=== PATIENT | female | born 1985 | race Caucasian/White ===

== ENCOUNTER → 2019-07-20 | Outpatient (CLI) | payer OTHER ==
--- NOTE | 2019-07-20 10:55 | US ---
EXAMINATION TYPE: US venous doppler duplex LE LT DATE OF EXAM: 07/20/2019 10:35 AM COMPARISON: NONE CLINICAL HISTORY: M79.605,Z86.718 HX DVT, LT LEG PAIN. No h/o DVT, patient had hematoma in her left c golden at 18 that they tried to drain, never on thinners, now left foot is swelling SIDE PERFORMED: Left TECHNIQUE: The lower extremity deep venous system is examined utilizing real time linear array sonog lilliana with graded compression, doppler sonography and color-flow sonography. VESSELS IMAGED: External Iliac Vein (EIV) Common Femoral Vein Deep Femoral Vein Greater Saphenous Vein * Femoral Vein Popliteal Vein Small Saphenous Vein * Proximal Calf Veins (* superficial vessels) Left Leg: Limited exam appears negative for DVT Patient can not tolerate any touching in her thigh due to extremely ticklish and cannot relax leg Unable to do compression on her left EIV or CFV and vein could not fully compress due to her tensing during exam. Good blood flow and doppler seen throughout leg. IMPRESSION: 1. No left lower extremity deep venous thrombosis could be diagnosed based on this examination. There is limitation in the external iliac and common femoral vein due to sensitivity
== END | disposition home or self-care (01) ==
LOC: RADUSWWP 10:11
PROVIDERS: ATTEND Family Medicine
DX: M79.605 Pain in left leg (principal); Z86.718 Personal history of other venous thrombosis and embolism

== ENCOUNTER → 2021-04-08 | Outpatient (CLI) | payer OTHER ==
[2021-04-08 17:24] VITALS: BP 122/87; PULSE 75; RESP 16; TEMP 98.2; BMI 50.3
--- NOTE | 2021-04-08 17:31 | P.HPBAR ---
Bariatric H&P - History & Physicial H&P Date: 04/08/21 History & Physicial: Visit/CC: initial Patient initial contact: Initial weight: 135.171 kg Initial weight in pounds: 298.00 Height: 5 ft 4.5 in Initial BMI: 50.3 Last weight: Current weight: 135.171 kg Current weight in pounds: 298.00 Current BMI: 50.3 [place] body weight (based on NIH guidelines): 55.565 kg Excess body weight loss: 0.0% The patient is a 36 year-old F who presents for Bariatric Assessment. She is looking into weight loss. Highest of 308 pounds. She has tried Weight watchers, keto diet, atkins diet, intermittent fasting, and more. She lost 27 pounds with previous attempts with weight regain. All family immediate has troubles with their weight. Her mother has the lap band and is looking to have it removal. No gallbladder. She reports GERD. She does not take medications for her GERD but has occasional homeopathic remedies. She has lower back pain, hip, knee, ankle and feet pain. She has easy bruising. No prior DVTs. Grandmother had blood clots. No stomach or esophageal cancer. No IBD. She has thyroid and PCOS. No hypertension. No sleep apnea. No hiatal hernia to her knowledge. Only gallbladder surgery via laparoscopic approach. No blood in stool. Past Medical History Past Medical History: No Reported History History of Any Multi-Drug Resistant Organisms: None Reported Past Surgical History: Cholecystectomy Additional Past Surgical History / Comment(s): LEEP-2005 Past Anesthesia/Blood Transfusion Reactions: No Reported Reaction Past Psychological History: No Psychological Hx Reported Smoking Status: Unknown if ever smoked Past Alcohol Use History: None Reported Past Drug Use History: None Reported - Past Family History Mother Family Medical History: Hypertension Father Family Medical History: Hypertension Additional Family Medical History / Comment(s): father born completely missing aortic valve Surgical - Exam Vital Signs Temp Pulse Resp BP 98.2 F 75 16 122/87 04/08/21 17:18 04/08/21 17:18 04/08/21 17:18 04/08/21 17:18 Bariatric Checklist Checklist: Plan: Checklist: EGD: 1. Hiatal hernia: 2. H. Pylori: HgbA1c: Vitamin D: Smoking: Never smoker Primary care physician referral: laming Psychiatry clearance: Cardiology clearance: Sleep study: Diet journal: VTE risk score: VTE risk level: Rehab needs at discharge:
== END | disposition home or self-care (01) ==
LOC: BARWHC3 15:53
PROVIDERS: ATTEND Surgery Plastic and Reconstructive Surgery
DX: E66.01 Morbid (severe) obesity due to excess calories (principal); Z68.43 Body mass index [BMI] 50.0-59.9, adult
CPT/HCPCS: 99203

== ENCOUNTER → 2021-04-10 | Outpatient (CLI) | payer OTHER ==
[2021-04-10 10:35] LABS: INR 0.9 (<1.2); Prothrombin Time 10.1 sec (9.0-12.0)
[2021-04-10 10:54] LABS: Partial Thromboplastin Time 21.1 sec (22.0-30.0)
[2021-04-10 16:25] LABS: % Iron Saturation 12.98 (12.00-45.00); African American GFR (CKD) 111.5 (60.0-200.0); Albumin 4.4 g/dL (3.80-4.90); Albumin/Globulin Ratio 1.76 (1.60-3.17); Anion Gap 7.2 mmol/L (4.00-12.00); BUN/Creat Ratio 12.5 Ratio (12.00-20.00); Calcium 8.9 mg/dL (8.7-10.3); Carbon Dioxide 26.8 mmol/L (21.6-31.8); Chol/HDL Ratio 4.45; Globulin 2.5 g/dL (1.6-3.3); LDL Cholesterol,Calculated 112.4 mg/dL (0.0-131.0); Magnesium 1.9 mg/dL (1.5-2.4); Non-African American GFR(CKD) 96.2 (60.0-200.0); Phosphorus 3.5 mg/dL (2.4-5.1); Potassium 4.1 mmol/L (3.5-5.5); Total Bilirubin 0.6 mg/dL (0.3-1.2); Total Protein 6.9 g/dL (6.2-8.2); VLDL Calculation 25.6 mg/dL (5.00-40.00)
[2021-04-10 16:29] LABS: HCT 43.2 % (37.2-46.3); HGB 13.3 g/dL (12.0-15.0); MCH 25.9 pg (27.0-32.0); MCHC 30.8 g/dL (32.0-37.0); Mean Platelet Volume 11.5 fL (9.5-12.2); Platelet Count 284 X 10*3/uL (140-440); RBC 5.14 X 10*6/uL (4.10-5.20); RDW 13.6 % (11.5-14.5); WBC 7.73 X 10*3/uL (4.50-10.00)
[2021-04-10 16:33] LABS: Ferritin 26.9 ng/mL (10.0-291.0)
[2021-04-10 16:39] LABS: Folate, Serum 10.5 ng/mL
[2021-04-11 04:21] LABS: Hemoglobin A1C 4.9 % (4.0-6.0)
[2021-04-13 19:32] LABS: Selenium 133 mcg/L (63-160)
[2021-04-14 06:30] LABS: Vitamin A 41 ug/dL (38-106)
[2021-04-14 06:46] LABS: Vit B1(Thiamine) 75 ug/L (38-122)
[2021-04-14 06:57] LABS: Zinc, Serum 88 ug/dL (60-130)
[2021-04-14 09:46] LABS: Anabasine Urine <2.0 ng/mL (<2.0)
== END | disposition home or self-care (01) ==
LOC: LABWHC1 08:57
PROVIDERS: ATTEND Surgery Plastic and Reconstructive Surgery
DX: E66.01 Morbid (severe) obesity due to excess calories (principal); E89.1 Postprocedural hypoinsulinemia; D50.8 Other iron deficiency anemias; K90.89 Other intestinal malabsorption; E55.9 Vitamin D deficiency, unspecified; K74.1 Hepatic sclerosis; N19 Unspecified kidney failure; K50.90 Crohn's disease, unspecified, without complications; Z71.51 Drug abuse counseling and surveillance of drug abuser; Z98.84 Bariatric surgery status
CPT/HCPCS: 36415; 80053; 80061; 80323; 82306; 82525; 82607; 82728; 82746; 83036; 83540; 83550; 83735; 83970; 84100; 84134; 84255; 84425; 84443; 84590; 84630; 85027; 85610; 85730; 93005

== ENCOUNTER 2021-05-11 07:29 | Day surgery (SDC) | payer OTHER ==
[2021-05-08 09:33] VITALS: BMI 51.5
[~2021-05-11 07:29] MED LIST: LACTATED RINGERS 1,000 ML IV SCH; LIDOCAINE 1% (10MG/ML) FOR IV START INTRADERMA PRN
--- NOTE | 2021-05-11 08:01 | P.GSHP ---
History of Present Illness H&P Date: 05/11/21 CHIEF COMPLAINT: GERD HISTORY OF PRESENT ILLNESS: The patient is a 36-year-old female who presents reports gastroesophageal reflux disease. Upper endoscopy was offered for further evaluation and management. PAST MEDICAL HISTORY: Please see list. PAST SURGICAL HISTORY: Please see list. MEDICATIONS: Please see list. ALLERGIES: Please see list. SOCIAL HISTORY: No illicit drug use FAMILY HISTORY: No reports of Crohn disease or ulcerative colitis. REVIEW OF ORGAN SYSTEMS: CONSTITUTIONAL: No reports of fevers or chills. GI: Denies any blood in stools or constipation. PHYSICAL EXAM: VITAL SIGNS: Stable GENERAL: Well-developed and pleasant in no acute distress. HEENT: No scleral icterus. Extraocular movements grossly intact. Moist buccal mucosa. NECK: Supple without lymphadenopathy. CHEST: Unlabored respirations. Equal bilateral excursions. CARDIOVASCULAR: Regular rate and rhythm. Distal 2+ pulses. ABDOMEN: Soft, nondistended. MUSCULOSKELETAL: No clubbing, cyanosis, or edema. ASSESSMENT: 1. Gastroesophageal reflux disease PLAN: 1. Recommend proceeding with an upper endoscopy Past Medical History Past Medical History: No Reported History History of Any Multi-Drug Resistant Organisms: None Reported Past Surgical History: Cholecystectomy Additional Past Surgical History / Comment(s): LEEP-2005 Past Anesthesia/Blood Transfusion Reactions: No Reported Reaction Smoking Status: Former smoker - Past Family History Mother Family Medical History: Hypertension Father Family Medical History: Hypertension Additional Family Medical History / Comment(s): father born completely missing aortic valve Medications and Allergies Home Medications Medication Instructions Recorded Confirmed Type No Known Home Medications 05/08/21 05/08/21 History Allergies Allergy/AdvReac Type Severity Reaction Status Date / Time No Known Allergies Allergy Verified 05/08/21 09:25
[2021-05-11 08:09] VITALS: TEMP 97.7
[2021-05-11] MEDS ORDERED: LACTATED RINGERS 1,000 ML IV ONE (08:09)
[2021-05-11] MEDS ORDERED: PROPOFOL 10 MG/ML 20 ML VIAL IV ONE (08:48)
[2021-05-11] MEDS ORDERED: LIDOCAINE 1% INJ 10MG/ML (20 ML MDV) ONE (08:48)
[2021-05-11 09:17] VITALS: BP 146/82; PULSE 75; RESP 16
--- NOTE | 2021-05-11 09:25 | P.PCN ---
Date of Procedure: 05/11/21 Description of Procedure: PREOPERATIVE DIAGNOSIS: Gastroesophageal reflux disease. Morbid obesity. POSTOPERATIVE DIAGNOSIS: Morbid obesity. Gastritis. Gastroesophageal reflux disease. OPERATION: Esophagogastroduodenoscopy with biopsies along antrum. SURGEON: Breanne Hooper MD ANESTHESIA: MAC. INDICATIONS: The patient is a 36-year-old female who presents with a history of reflux disease. Benefits and risks of the procedure were described. Informed consent was obtained. DESCRIPTION: The patient was brought into the endoscopy suite and laid in the left lateral decubitus position. An Olympus gastroscope was passed along the posterior oropharynx down to the distal esophagus where the squamocolumnar junction was encountered at 40 cm from the incisors. The stomach was entered and no bile reflux was found. Additional findings are listed below. Biopsies with cold forceps were obtained of the antrum. The first through third portion of the duodenum was examined and unremarkable. Retroflexion of the scope confirmed Hill grade 2 lower esophageal valve. The squamocolumnar junction demonstrated LA grade A erosive esophagitis. The stomach was desufflated. The patient tolerated the procedure well. FINDINGS: Squamocolumnar junction 37 cm from the incisors. Diaphragmatic hiatus at 37 cm. Hill grade 2 lower esophageal valve. LA grade A erosive esophagitis. No active duodenitis. Chronic gastritis RECOMMENDATIONS: Upper endoscopy as needed. Plan - Discharge Summary Discharge Rx Participant: No New Discharge Prescriptions: Continue No Known Home Medications Discharge Medication List No Known Home Medications 05/08/21 [History] Follow up Appointment(s)/Referral(s): [place], [place] [NON-STAFF] - 05/20/21 Patient Instructions/Handouts: *Surgery [facility] - (Anesthesia) Endoscopy Discharge Instructions, Gastritis (DC) Discharge Disposition: HOME SELF-CARE
== END 2021-05-11 09:47 | disposition home or self-care (01) ==
LOC: ORWHC2ENDO 07:29
PROVIDERS: ATTEND Surgery Plastic and Reconstructive Surgery
DX: K29.50 Unspecified chronic gastritis without bleeding (principal); K22.10 Ulcer of esophagus without bleeding; K21.9 Gastro-esophageal reflux disease without esophagitis; Z90.49 Acquired absence of other specified parts of digestive tract; Z87.891 Personal history of nicotine dependence; Z82.49 Family history of ischemic heart disease and other diseases of the circulatory system; Z84.89 Family history of other specified conditions; E66.01 Morbid (severe) obesity due to excess calories; Z68.43 Body mass index [BMI] 50.0-59.9, adult; Z98.890 Other specified postprocedural states
CPT/HCPCS: 81025; 88305; 43239; J2001; J2704

== ENCOUNTER → 2021-05-25 | Outpatient (CLI) | payer OTHER ==
[2021-05-25 13:33] VITALS: BMI 50.8
== END | disposition home or self-care (01) ==
LOC: BARWHC3 08:42
PROVIDERS: ATTEND Surgery Plastic and Reconstructive Surgery
DX: E66.01 Morbid (severe) obesity due to excess calories (principal); Z71.3 Dietary counseling and surveillance
CPT/HCPCS: 97804

== ENCOUNTER → 2021-05-27 | Outpatient (CLI) | payer OTHER ==
[2021-05-27 17:37] VITALS: BP 152/95; PULSE 80; RESP 18; TEMP 98.4; BMI 50.5
--- NOTE | 2021-05-27 17:41 | P.PN ---
Subjective Progress Note Date: 05/27/21 She comes in consent for sleeve. BMI 50. Keep current weight. Consent reviewed. Objective - Vital Signs Vital signs: Vital Signs Temp 98.4 F 05/27/21 17:32 Pulse 80 05/27/21 17:32 Resp 18 05/27/21 17:32 BP 152/95 05/27/21 17:32 Pulse Ox Intake & Output 05/26/21 05/27/21 05/27/21 18:59 06:59 18:59 Weight 135.624 kg
== END | disposition home or self-care (01) ==
LOC: BARWHC3 15:56
PROVIDERS: ATTEND Surgery Plastic and Reconstructive Surgery
DX: E66.01 Morbid (severe) obesity due to excess calories (principal); Z68.43 Body mass index [BMI] 50.0-59.9, adult
CPT/HCPCS: 99211

== ENCOUNTER → 2021-08-24 | Outpatient (CLI) | payer OTHER ==
[2021-08-24 10:36] LABS: Basophils # (A) 0.1 k/uL (0-0.2); Basophils % (A) 1 %; Eosinophils # (A) 0.1 k/uL (0-0.7); Eosinophils % (A) 1 %; HCT 40.3 % (34.0-46.0); HGB 13.2 gm/dL (11.4-16.0); Lymphocytes # (A) 2.2 k/uL (1.0-4.8); Lymphocytes % (A) 27 %; MCH 26.7 pg (25.0-35.0); MCHC 32.7 g/dL (31.0-37.0); MCV 81.7 fL (80.0-100.0); Monocytes # (A) 0.4 k/uL (0-1.0); Monocytes % (A) 5 %; Neutrophils # (A) 5.5 k/uL (1.3-7.7); Neutrophils % (A) 65 %; Platelet Count 310 k/uL (150-450); RBC 4.93 m/uL (3.80-5.40); WBC 8.4 k/uL (3.8-10.6)
[2021-08-24 10:45] LABS: ALT 22 U/L (4-34); AST 22 U/L (14-36); African American GFR (CKD) >90 (>60 ml/min/1.73 sqM); Albumin 3.9 g/dL (3.5-5.0); Alkaline Phosphatase 60 U/L (38-126); Anion Gap 9 mmol/L; Blood Urea Nitrogen 15 mg/dL (7-17); Calcium 9.5 mg/dL (8.4-10.2); Carbon Dioxide 26 mmol/L (22-30); Chloride 104 mmol/L (98-107); Glucose 94 mg/dL (74-99); Non-African American GFR(CKD) >90 (>60 ml/min/1.73 sqM); Potassium 4.4 mmol/L (3.5-5.1); Sodium 139 mmol/L (137-145); Total Bilirubin 0.7 mg/dL (0.2-1.3); Total Protein 7.1 g/dL (6.3-8.2)
== END | disposition home or self-care (01) ==
LOC: LABPAT 09:12
PROVIDERS: ATTEND Surgery Plastic and Reconstructive Surgery
DX: Z01.812 Encounter for preprocedural laboratory examination (principal)
CPT/HCPCS: 80053; 85025; 86850; 86900; 86901

== ENCOUNTER 2021-08-31 07:53 | Inpatient (IN) | payer OTHER ==
--- NOTE | 2021-08-31 05:24 | P.GSHP ---
History of Present Illness H&P Date: 08/31/21 CHIEF COMPLAINT: Morbid obesity HISTORY OF PRESENT ILLNESS: Feli Bryant is a 36-year-old female who presents with morbid obesity. Her highest is 308 pounds. She has tried Weight watchers, keto diet, atkins diet, intermittent fasting, and more. She lost 27 pounds with her previous attempts and now with weight regain. She has osteoarthritis with lower back pain, hip, knee, ankle and feet pain. She has easy bruising. She is looking into the sleeve gastrectomy. At height of 5 feet 4.5 inches, her ideal body weight is 144 pounds. Her highest is 308 pounds, body mass index 52.1. She comes in 298 pounds. Her body mass index is 50.5. She is 154 pounds overweight. PAST MEDICAL HISTORY: 1. Morbid obesity due to excess calories 2. Body mass index of 52.1 3. Osteoarthritis of the knees. 4. Osteoarthritis of the lower back. 5. Osteoarthritis of the hips 6. Osteoarthritis of the ankle 7. Osteoarthritis of the feet 8. Gastroesophageal reflux disease. 9. Hypertension. PAST SURGICAL HISTORY: 1. Cholecystectomy 2. LEEP procedure HOME MEDICATIONS: Home Medications Medication Instructions Recorded Confirmed Ibuprofen [Motrin] 200 mg PO Q6H 05/27/21 05/27/21 ALLERGIES: Allergies Allergy/AdvReac Type Severity Reaction Status Date / Time No Known Allergies Allergy Verified 05/27/21 17:33 SOCIAL HISTORY: Denies past tobacco use. FAMILY HISTORY: No family history of ulcerative colitis disease or Crohn's disease. Family history of morbid obesity. No lupus in the family. No reports of stomach or esophageal cancer. REVIEW OF ORGAN SYSTEMS: CONSTITUTIONAL: At height of 5 feet 4.5 inches, her ideal body weight is 144 pounds. Her highest is 308 pounds, body mass index 52.1. She comes in 298 pounds. Her body mass index is 50.5. She is 154 pounds overweight. HEENT: Denies any active troubles with vision or hearing. ENDOCRINE: Denies diabetes. Denies hypothyroidism. CARDIOVASCULAR: Denies past reports of palpitations or heart attacks or chest pain. RESPIRATORY: Has daytime somnolence. GASTROINTESTINAL: Denies any bright red blood per rectum. Has gastroesophageal reflux disease. MUSCULOSKELETAL: Has lower back pain and joint pain. Has osteoarthritis of the knees. NEURO: No headaches. No seizure disorders. PSYCH: Denies depression. No suicidal ideation. RHEUMATOLOGIC: No lupus. No rheumatoid arthritis. HEMATOLOGIC: Denies any abnormal bleeding or bruising. No personal history of DVTs. SKIN: Denies rash. No skin cancer. PHYSICAL EXAM: VITAL SIGNS: Height 5 foot 4.5 inches, weight 298 pounds. BMI 50.5 GENERAL: Well-developed in no acute distress. HEENT: No scleral icterus. Extraocular movements grossly intact. Hears conversational speech. No nasal drainage. NECK: Supple without lymphadenopathy. CHEST: Nonlabored respirations with equal bilateral excursions. CARDIOVASCULAR: Regular rate and regular rhythm. Distal 2+ pulses. ABDOMEN: Obese, soft, nontender, nondistended. MUSCULOSKELETAL: No clubbing, cyanosis. NEURO: No focal or lateralizing signs. Cranial nerves 2 through 12 grossly within normal limits. PSYCH: Appropriate affect. Alert and oriented to person, place and time. SKIN: Good skin turgor. Well perfused. ASSESSMENT: 1. Morbid obesity due to excess calories 2. Body mass index of 52.1 3. Osteoarthritis of the knees. 4. Osteoarthritis of the lower back. 5. Osteoarthritis of the hips 6. Osteoarthritis of the ankle 7. Osteoarthritis of the feet 8. Gastroesophageal reflux disease. 9. Hypertension. 10. Iron deficiency anemia 11. Chronic gastritis PLAN: 1. Bariatric options between a sleeve, band and a Nikki-en-Y gastric bypass were reviewed in detail. The patient elected for a sleeve gastrectomy. Robotic assisted approach described. 2. The [place] [facility]ariat[facility] Collaborative Data was also reviewed with benefits and risks as described. 3. An 8 page second-generation bariatric consent form was reviewed in detail including potential of bleeding, infection, leaks, adequate weight loss, nutritional deficiencies which the patient demonstrated understanding of the risks. 4. Antibiotic prophylaxis. 5. Inpatient hospitalization anticipated for more than 2 nights. 6. She is at elevated risk for perioperative complications with body mass index over 50.0 7. Overall, patient has expressed understanding of bariatric care including postoperative diet and commitment of lifestyle. Patient should benefit from surgical intervention for correction of her morbid obesity. Past Medical History Past Medical History: No Reported History History of Any Multi-Drug Resistant Organisms: None Reported Past Surgical History: Cholecystectomy Additional Past Surgical History / Comment(s): LEEP-2006. egd Past Anesthesia/Blood Transfusion Reactions: No Reported Reaction Smoking Status: Former smoker - Past Family History Mother Family Medical History: Hypertension Father Family Medical History: Hypertension Additional Family Medical History / Comment(s): father born completely missing aortic valve FLAP Medications and Allergies Home Medications Medication Instructions Recorded Confirmed Type No Known Home Medications 08/27/21 08/27/21 History Allergies Allergy/AdvReac Type Severity Reaction Status Date / Time No Known Allergies Allergy Verified 08/27/21 14:58
[~2021-08-31 07:53] MED LIST changes: +DEXAMETHASONE SOD PHOSPHATE 4 MG/ML 1 ML VIAL IV ONE; +HYDROmorphone 0.5 MG/0.5 ML SYRINGE IVP PRN; +KETOROLAC 15 MG/ML 1 ML VIAL IVP SCH; +METOCLOPRAMIDE 5 MG/ML 2 ML VIAL IVP PRN; +ONDANSETRON 4 MG/2 ML VIAL IVP ONE; +SCOPOLAMINE 1.5MG/72HR PATCH TRANSDERM ONE; +ceFAZolin 3 GM in SODIUM CHLORIDE 0.9% 100 ML IVPB PRN
[2021-08-31] MEDS: MELOXICAM 7.5 MG TAB PO SCH ×2 (08:38→16:09)
[2021-08-31] MEDS ORDERED: ceFAZolin 3 GM in SODIUM CHLORIDE 0.9% 100 ML IVPB STA (08:49)
[2021-08-31] MEDS ORDERED: PANTOPRAZOLE 40 MG/10 ML VIAL IVP STA (08:49)
[2021-08-31] MEDS ORDERED: CHLORHEXIDINE GLUCONATE 15 ML CUP MUCOUS MEM STA (08:49)
[2021-08-31] MEDS ORDERED: ENOXAPARIN 40 MG/0.4 ML SYRINGE SQ STA (08:49)
--- NOTE | 2021-08-31 08:52 | P.HPADDEND ---
H&P Addendum H&P Addendum Date: 08/31/21 Additional questions addressed with patient including history of emergency operation for cholecystectomy. Patient presents elevated risk for intra- abdominal adhesions including increased operative time due to surgical history. All questions were addressed. We'll proceed with robotic sleeve gastrectomy. Possibility of discontinuing procedure due to large liver or hepatomegaly also reviewed in detail.
[2021-08-31] MEDS ORDERED: CHLOROPROCAINE 3% 30 MG/ML 20 ML VIAL MISCELLANE ONE (09:00)
[2021-08-31] MEDS ORDERED: CHLORHEXIDINE GLUCONATE 15 ML CUP MUCOUS MEM ONE (09:05)
[2021-08-31] MEDS ORDERED: MIDAZOLAM 2 MG/2 ML VIAL ONE (09:25)
[2021-08-31] MEDS ORDERED: DEXAMETHASONE SOD PHOSPHATE 10 MG/ML 1 ML VIAL ONE (09:25)
[2021-08-31] MEDS ORDERED: ROCURONIUM 10 MG/ML (5 ML VIAL) IV ONE (09:25)
[2021-08-31] MEDS ORDERED: fentaNYL (PF) 50 MCG/ML 2 ML AMP ONE (09:25)
[2021-08-31] MEDS ORDERED: PROPOFOL 10 MG/ML 20 ML VIAL IV ONE (09:25)
[2021-08-31] MEDS ORDERED: LIDOCAINE 1% INJ 10MG/ML (20 ML MDV) ONE (09:25)
[2021-08-31] MEDS ORDERED: HYDROmorphone (PF) 1 MG/ML ONE (09:25)
[2021-08-31] MEDS ORDERED: NEOSTIGMINE 1 MG/ML 10 ML VIAL ONE (09:25)
[2021-08-31] MEDS ORDERED: KETAMINE 10 MG/ML 20 ML VIAL ONE (09:25)
[2021-08-31] MEDS ORDERED: GLYCOPYRROLATE 0.2 MG/ML 2 ML VIAL ONE (09:25)
[2021-08-31] MEDS ORDERED: SUCCINYLCHOLINE CHLORIDE VIAL 200 MG/10 ML VIAL IV ONE (09:25)
[2021-08-31] MEDS ORDERED: LIDOCAINE 0.5%-EPI 1:200,000 50 ML VIAL SQ ONE (09:55)
--- NOTE | 2021-08-31 11:40 | P.OP ---
Date of Procedure: 08/31/21 Description of Procedure: SURGEON: JONES HENRY MD PREOPERATIVE DIAGNOSES: 1. Morbid obesity due to excess calories 2. Body mass index of 52.1 3. Osteoarthritis of the knees. 4. Osteoarthritis of the lower back. 5. Osteoarthritis of the hips 6. Osteoarthritis of the ankle 7. Osteoarthritis of the feet 8. Gastroesophageal reflux disease. 9. Hypertension. 10. Iron deficiency anemia 11. Chronic gastritis POSTOPERATIVE DIAGNOSES: 1. Morbid obesity due to excess calories 2. Body mass index of 52.1 3. Osteoarthritis of the knees. 4. Osteoarthritis of the lower back. 5. Osteoarthritis of the hips 6. Osteoarthritis of the ankle 7. Osteoarthritis of the feet 8. Gastroesophageal reflux disease with erosive esophagitis 9. Hypertension. 10. Iron deficiency anemia 11. Chronic gastritis 12. Esophageal ulcer OPERATION: 1. Robotic assisted daVinci Xi laparoscopic sleeve gastrectomy with 40-Tajik bougie, multiport. 2. Intraoperative esophagogastroduodenoscopy. ANESTHESIA: Gen. local anesthetic ESTIMATED BLOOD LOSS: 5 mL SPECIMENS REMOVED: Sleeve gastrectomy COMPLICATIONS: None. FINDINGS: 1. Negative intraoperative esophagogastrojejunoscopy leak test. 2. No hepatomegaly and no large hiatus hernia. 3. Total of 6 staplers used including 2 - 60 mm blue robot lizzeth and 4 - 60 mm green robot loads used to create the gastric sleeve. 4. Sleeve gastrectomy, 25 x 5 cm INDICATIONS: Feli Bryant is a 36-year-old female who presents with morbid obesity. Her highest is 308 pounds. She has tried Weight watchers, keto diet, atkins diet, intermittent fasting, and more. She lost 27 pounds with her previous attempts and now with weight regain. She has osteoarthritis with lower back pain, hip, knee, ankle and feet pain. She has easy bruising. She is looking into the sleeve gastrectomy. At height of 5 feet 4.5 inches, her ideal body weight is 144 pounds. Her highest is 308 pounds, body mass index 52.1. She comes in 278 pounnds from 298 pounds after 4 months. She is 134 pounds overweight. All surgical options for morbid obesity had been described using the [place] bariatric surgery collaborative comorbidity resolution including complication risk score. A second-generation bariatric consent form was described in detail including the possibility of protein malnutrition, leaks, gastric stricture, venous thrombosis, gastroesophageal reflux disease, need for further surgery for which she demonstrated understanding. Benefits and risks of the procedure were described at length. Informed consent was obtained. DESCRIPTION: The patient was brought into the operating room theater. Preoperatively she had received Lovenox subcutaneously for DVT prophylaxis. Additionally she had Peridex oral solution as an oral decontaminant. After general induction, the abdomen was prepped and draped in standard sterile fashion. An Ioban draping was placed along the abdomen. A robotic da Joselyn Xi system was prepped and primed. At 15 cm from the xiphoid, proposed port sites were marked with indelible marker along the anterior axillary line bilaterally, mid axillary line bilaterally with each ports were marked 10 to 15 cm from each other. The document control assistant port was marked along the left lateral abdominal wall. The robotic stapler port was marked for the right midclavicular line. A 5 mm 0 degrees laparoscopic trocar entry was performed along the left upper quadrant. The abdomen was insufflated to 15 mmHg pressure was tolerated well. Diagnostic laparoscopy demonstrated no injury to bowel, viscera, or mesentery. No evidence of large hiatus hernia was identified. The liver was unremarkable consistent with her high-protein low-carb diet. A 8 mm port was placed along the left upper abdominal wall after exchanging the 5 mm port. A separate 8 mm port was placed along the left lateral abdominal wall. Please note that the ports were placed at least 20 cm away from the target anatomy. Care was taken to check each robotic arms were safely away from collision with the bed or the patient. At the epigastrium, a medium sized Adriane liver retractor was placed under direct visualization with the Iron Cashier placed under the right shoulder of the patient. Next, 12-mm robot stapler port was placed along the right upper lexi drant. The camera 8-mm port was maintained along the epigastrium. The patient was repositioned in reverse Trendelenburg position at 21-degrees after lowering the bed. The robot was docked along the left side of the patient. Using a grasper for arm 4, a vessel sealer for arm 3, including grasper for arm 1, the robotic system was docked and primed as described. Instruments were interchanged by the document control assistant for stapler loads. The camera was placed at 30- degrees down. I had sat at the console. The pylorus was identified and 6 cm proximally along the greater curvature of the stomach, the short gastrics were mobilized upwards to the angle of His using a vessel sealer. Hemostasis was excellent during this portion of the procedure. Next, the upper pole of the stomach was adherent to the left bryan, which was gently dissected free using atraumatic grasper. I went to the head of the bed and placed 40-Tajik blunt bougie into the stomach. The bougie was readjusted by the nurse backer up. Robotic stapler green load 60 mm 4 followed by blue 60 mm x 2 loads were used to create the sleeve. Initial firing was across the antrum of the stomach towards the angle of His. The staple line was linear without corkscrewing. The space from the angularis incisura of the sleeve was approximately 4 cm. I then went to the head of the bed to perform the intraoperative esophagogastroduodenoscopy leak test. The bougie was withdrawn. The upper pole of the stomach was bathed using normal saline solution. The scope was withdrawn with careful inspection along the staple line for which no leaks were found along the entire length. Additionally,the sleeve was completely hemostatic without any encroachment along the angularis incisura. Its topology was a soft "J". No stricture was encountered upon placement of the scope. Erosive esophagitis with early ulcerations at least 1 cm in length was found consistent with LA grade C erosive esophagitis without bleeding. The GI tract was desuffl ated. The patient tolerated this portion of the procedure well. The scope was completely withdrawn. The robot was undocked. I then rescrubbed into case, whereby the irrigation fluid was aspirated from the abdominal cavity. Tisseel fibrin sealant was placed along the entire staple length. Once dried the Adriane liver retractor was removed. Attention was now brought to removal of the specimen. The distal end of the sleeve gastrectomy specimen was brought out through the 12 mm port at the left upper quadrant. The specimen was gently removed en total. No contamination had occurred during this process. All instruments and pneumoperitoneum including irrigation fluid was removed from the abdominal cavity. The 12 mm port site was closed using 0-Vicryl and Graeme Alvaradoson and irrigated with diluted hydrogen peroxide. The final incisions were closed using subcuticular interrupted suture of 4-0 Monocryl. Exofin was applied to the skin once the skin had been cleansed. OptiFoam dressing was placed along the stomach extraction site. The sleeve specimen was measured and checked also for leaks which none were found. At the end of the procedure, needle, sponge, and instrument count was verified correct by the surgical attendant. The patient was taken to the postanesthesia care unit in stable condition. She had tolerated the procedure well. Intraoperative films and findings were reviewed with the patient's family.
[2021-08-31] MEDS ORDERED: diphenhydrAMINE 50 MG/ML 1 ML VIAL IVP PRN (11:42)
[2021-08-31] MEDS ORDERED: HYDROmorphone 1 MG/ML 1 ML SYRINGE IVP PRN (11:42)
[2021-08-31] MEDS ORDERED: NALOXONE 0.4 MG/ML 1 ML VIAL IV PRN (11:42)
[2021-08-31] MEDS ORDERED: HYDROmorphone 0.5 MG/0.5 ML SYRINGE IVP ONE (12:12)
[2021-08-31] MEDS: ACETAMINOPHEN IV (For NPO) 1,000 MG in EMPTY BAG 1 BAG IVPB SCH ×2 (15:19→22:11)
[2021-08-31] MEDS: SIMETHICONE 40 MG/0.6 ML DROPS 2,000 MG/30 ML BOTTLE PO SCH (15:20)
[2021-08-31] MEDS: HYOSCYAMINE ORAL DROPS 1.875 MG/15 ML BOTTLE PO SCH (15:20)
[2021-08-31] MEDS: ceFAZolin 3 GM in SODIUM CHLORIDE 0.9% 100 ML IVPB SCH ×2 (15:21→16:15)
[2021-08-31] MEDS: ALBUTEROL NEBULIZED 2.5 MG/3 ML INHALATION SCH ×2 (15:37→19:51)
[2021-08-31] MEDS: 0.9% NACL WITH KCL 20 MEQ/L 1,000 ML IV SCH (16:15)
[2021-08-31] MEDS: DEXAMETHASONE SOD PHOSPHATE 4 MG/ML 1 ML VIAL IV SCH (16:51)
[2021-08-31] MEDS: KETOROLAC 15 MG/ML 1 ML VIAL IVP SCH (16:51)
[2021-08-31] MEDS: ONDANSETRON 4 MG/2 ML VIAL IVP SCH (16:52)
[2021-08-31] MEDS ORDERED: METOCLOPRAMIDE 5 MG/ML 2 ML VIAL IVP PRN (20:11)
[2021-08-31] MEDS: FAMOTIDINE 20 MG TAB PO SCH (21:03)
[2021-09-01] MEDS: DEXAMETHASONE SOD PHOSPHATE 4 MG/ML 1 ML VIAL IV SCH ×3 (00:55→12:41)
[2021-09-01] MEDS: ONDANSETRON 4 MG/2 ML VIAL IVP SCH ×3 (00:55→12:40)
[2021-09-01] MEDS: HYOSCYAMINE ORAL DROPS 1.875 MG/15 ML BOTTLE PO SCH ×3 (00:55→12:41)
[2021-09-01] MEDS: KETOROLAC 15 MG/ML 1 ML VIAL IVP SCH ×3 (00:55→12:40)
[2021-09-01] MEDS: 0.9% NACL WITH KCL 20 MEQ/L 1,000 ML IV SCH ×2 (00:56→10:20)
[2021-09-01] MEDS: SIMETHICONE 40 MG/0.6 ML DROPS 2,000 MG/30 ML BOTTLE PO SCH ×3 (00:56→12:41)
[2021-09-01] MEDS: ACETAMINOPHEN IV (For NPO) 1,000 MG in EMPTY BAG 1 BAG IVPB SCH ×2 (04:45→10:20)
[2021-09-01 06:53] LABS: African American GFR (CKD) >90 (>60 ml/min/1.73 sqM); Anion Gap 9 mmol/L; Blood Urea Nitrogen 7 mg/dL (7-17); Calcium 8.9 mg/dL (8.4-10.2); Carbon Dioxide 21 mmol/L (22-30); Chloride 107 mmol/L (98-107); Non-African American GFR(CKD) >90 (>60 ml/min/1.73 sqM); Phosphorus 2.7 mg/dL (2.5-4.5); Potassium 4.5 mmol/L (3.5-5.1); Sodium 137 mmol/L (137-145)
[2021-09-01] MEDS: FAMOTIDINE 20 MG TAB PO SCH (07:35)
[2021-09-01 07:50] VITALS: BP 144/84; RESP 16; TEMP 98.1
[2021-09-01] MEDS ORDERED: 0.9% NACL WITH KCL 20 MEQ/L 1,000 ML IV SCH (08:00)
[2021-09-01] MEDS: ALBUTEROL NEBULIZED 2.5 MG/3 ML INHALATION SCH ×2 (08:53→12:07)
[2021-09-01] MEDS ORDERED: ENOXAPARIN 40 MG/0.4 ML SYRINGE SQ SCH (09:00)
[2021-09-01 09:24] LABS: Basophils # (A) 0.01 X 10*3/uL (0.00-0.10); Basophils % (A) 0.1 %; Eosinophils # (A) 0 X 10*3/uL (0.04-0.35); Eosinophils % (A) 0 %; HCT 38.5 % (37.2-46.3); HGB 12.2 g/dL (12.0-15.0); Lymphocytes # (A) 0.98 X 10*3/uL (0.90-5.00); Lymphocytes % (A) 9.1 %; MCH 25.5 pg (27.0-32.0); MCHC 31.7 g/dL (32.0-37.0); MCV 80.5 fL (80.0-97.0); Mean Platelet Volume 10.8 fL (9.5-12.2); Monocytes # (A) 0.34 X 10*3/uL (0.20-1.00); Monocytes % (A) 3.2 %; Neutrophils # (A) 9.39 X 10*3/uL (1.80-7.70); Neutrophils % (A) 87.1 %; Platelet Count 334 X 10*3/uL (140-440); RBC 4.78 X 10*6/uL (4.10-5.20); RDW 14.1 % (11.5-14.5); WBC 10.77 X 10*3/uL (4.50-10.00)
--- NOTE | 2021-09-01 11:02 | FL ---
EXAMINATION TYPE: FL UGI DATE OF EXAM: 09/01/2021 LIMITED UGI: CLINICAL HISTORY: Morbid Obesity, gastric sleeve surgery yesterday. TECHNIQUE: Limited esophagram is performed utilizing 20 oz of Isovue. A total of 50 seconds of fluor oscopic time was utilized during procedure and 50 images obtained. COMPARISON: None. FINDINGS: The patient swallowed contrast without difficulty or delay. Esophageal peristalsis and mo tility are within normal limits. There is no delay in flow of contrast along the diaphragmatic hiatu s into proximal stomach and subsequent mild delay flow into gastric sleeve through proximal anastomos is. There is [id number] delay in flow from distal sleeve into pylorus and duodenal sweep. Patie nt however remains asymptomatic. There is no evidence of contrast extravasation to suggest leak. Chol ecystectomy clips incidentally noted. Tiny amount of free air below diaphragm presumed postsurgical i ncidentally noted. IMPRESSION: No evidence of leak. Mild to moderate obstruction is present but patient remains asymptom atic status post recent gastric sleeve surgery.
[2021-09-01 11:45] VITALS: BMI 47.0
--- NOTE | 2021-09-01 13:25 | P.DS ---
Providers Date of admission: 08/31/21 15:42 Expected date of discharge: 09/01/21 Attending physician: Breanne Hooper Primary care physician: Chiqui Carmona Hospital Course: Discharge diagnosis 1. Morbid obesity due to excess calories 2. Body mass index of 52.1 3. Osteoarthritis of the knees. 4. Osteoarthritis of the lower back. 5. Osteoarthritis of the hips 6. Osteoarthritis of the ankle 7. Osteoarthritis of the feet 8. Gastroesophageal reflux disease with erosive esophagitis 9. Hypertension. 10. Iron deficiency anemia 11. Chronic gastritis 12. Esophageal ulcer Hospital course Feli Bryant is a 36-year-old female who presents with morbid obesity. Her highest is 308 pounds. She has tried Weight watchers, keto diet, atkins diet, intermittent fasting, and more. She lost 27 pounds with her previous attempts and now with weight regain. She has osteoarthritis with lower back pain, hip, knee, ankle and feet pain. Patient is status post Robotic assisted daVinci Xi laparoscopic sleeve gastrectomy and Intraoperative esophagogastroduodenoscopy. Upper GI shows no evidence of leak. Did reveal mild to moderate obstruction is present but patient remains asymptomatic status post recent gastric sleeve surgery. Patient did receive dexamethasone. Patient is tolerating bariatric clear liquid diet. She denies any difficulty with swallowing. She reports her pain is controlled. She denies any nausea or vomiting. She is up and ambulating. She is afebrile. She is stable for discharge. Physician Row Boss note has been reviewed by physician. Signing provider agrees with the documented findings, assessment, and plan of care. Patient Condition at Discharge: Stable Plan - Discharge Summary Discharge Rx Participant: Yes New Discharge Prescriptions: New bisacodyL [Dulcolax] 5 mg PO DAILY PRN #10 tab PRN Reason: Constipation Simethicone 40 mg/0.6 ml Drops [Mylicon Drops] 40 mg PO PCHS PRN #30 ml PRN Reason: Gas Omeprazole [PriLOSEC] 40 mg PO DAILY #30 cap Ondansetron Odt [Zofran Odt] 4 mg PO Q8HR PRN #9 tab PRN Reason: Nausea Acetaminophen Tab [Tylenol Tab] 1,000 mg PO Q6HR PRN #30 tablet PRN Reason: Pain Discharge Medication List Acetaminophen Tab [Tylenol Tab] 1,000 mg PO Q6HR PRN #30 tablet 08/31/21 [Rx] Omeprazole [PriLOSEC] 40 mg PO DAILY #30 cap 08/31/21 [Rx] Ondansetron Odt [Zofran Odt] 4 mg PO Q8HR PRN #9 tab 08/31/21 [Rx] Simethicone 40 mg/0.6 ml Drops [Mylicon Drops] 40 mg PO PCHS PRN #30 ml 08/31/21 [Rx] bisacodyL [Dulcolax] 5 mg PO DAILY PRN #10 tab 08/31/21 [Rx] Follow up Appointment(s)/Referral(s): [place], [place] [NON-STAFF] - 09/04/21 9:00 am Patient Instructions/Handouts: *Surgery [facility] - Managing Your Pain After Surgery Without Opioids, Abdominal Binder (DC), Nutrition after Bariatric Surgery (DC), Laparoscopic Sleeve Gastrectomy (DC) Activity/Diet/Wound Care/Special Instructions: Liquid diet only for 2 weeks until September 14 No lifting over 4 pounds in 4 weeks, October 01March Shower. No soaking in bath tubs for 2 weeks, September 14 Please notify your surgeon if you develop nausea and vomiting including new onset of abdominal pain. Continue to use incentive spirometry to prevent pneumonias. Please continue to ambulate at home to prevent blood clots in legs. Follow-up at the bariatric center. March shower. Dressings to be discontinued by surgeon in the office. Drink 64 oz of fluid daily. Start protein shakes on . Notify bariatric center for temp over 101.0, increased pain, drainage from incisions. No straws or carbonated beverages. Liquid diet only. Sugar content should be less than 6 g to avoid dumping syndrome. Take MOM for constipation. CRUSH, OPEN, OR CUT TABLETS LARGER THAN A SIZE OF A TIC TAC Discharge Disposition: HOME SELF-CARE
[2021-09-01 14:40] VITALS: PULSE 68
[2021-09-02] MEDS ORDERED: bisacodyL 5 MG TABLET.DR PO PRN (08:00)
== END 2021-09-01 14:15 | disposition home or self-care (01) | DRG 620 ==
LOC: OR 07:53 → 4SSUR 14:18 → OR 15:42
PROVIDERS: ADMIT Surgery Plastic and Reconstructive Surgery; ATTEND Surgery Plastic and Reconstructive Surgery
PROC: 8E0W4CZ Robotic Assisted Procedure of Trunk Region, Percutaneous Endoscopic Approach (ICD-10-PCS; 2021-08-31)
PROC: 0DJ08ZZ Inspection of Upper Intestinal Tract, Via Natural or Artificial Opening Endoscopic (ICD-10-PCS; 2021-08-31)
PROC: 0DB64Z3 Excision of Stomach, Percutaneous Endoscopic Approach, Vertical (ICD-10-PCS; principal; 2021-08-31 09:15)
DX: E66.01 Morbid (severe) obesity due to excess calories (principal); K22.10 Ulcer of esophagus without bleeding; Z68.43 Body mass index [BMI] 50.0-59.9, adult; K21.00 Gastro-esophageal reflux disease with esophagitis, without bleeding; Z20.822 Contact with and (suspected) exposure to COVID-19; K29.50 Unspecified chronic gastritis without bleeding; D50.9 Iron deficiency anemia, unspecified; I10 Essential (primary) hypertension; M19.09 Primary osteoarthritis, other specified site; M16.0 Bilateral primary osteoarthritis of hip; M17.0 Bilateral primary osteoarthritis of knee; M19.079 Primary osteoarthritis, unspecified ankle and foot; Z87.891 Personal history of nicotine dependence; Z90.49 Acquired absence of other specified parts of digestive tract
CPT/HCPCS: 74240; 80051; 81025; 82310; 82565; 83735; 84100; 84520; 85025; 87635; 88307; 94640

== ENCOUNTER → 2021-09-09 | Outpatient (CLI) | payer OTHER ==
[2021-09-09 14:01] VITALS: BP 119/81; PULSE 77; RESP 16; TEMP 98.7; BMI 45.1
--- NOTE | 2021-09-09 14:51 | P.BASOAP ---
Subjective Progress Note Date: 09/09/21 She is having BMs. Her pain is present but improved. She reports feeling her drinking fluids. Her incisions are good. Follow up in 1 month post-op. Dietary suggestions reviewed. Objective - Vital Signs Vital signs: Vital Signs Temp 98.7 F 09/09/21 13:58 Pulse 77 09/09/21 13:58 Resp 16 09/09/21 13:58 BP 119/81 09/09/21 13:58 Pulse Ox Intake & Output 09/08/21 09/09/21 09/09/21 18:59 06:59 18:59 Weight 122.924 kg Assessment/Plan Plan: Date: 09/09/21 Initial Weight: 135.171 kg Initial BMI: 49.6 Current Weight: 122.924 kg Current BMI: 45.1 Type of Surgery: Total Volume in Band: Previous Volume: Volume Removed: Volume Added: Band Size:
== END | disposition home or self-care (01) ==
LOC: BARWHC3 13:22
PROVIDERS: ATTEND Surgery Plastic and Reconstructive Surgery
DX: E66.01 Morbid (severe) obesity due to excess calories (principal); Z71.3 Dietary counseling and surveillance
CPT/HCPCS: 97803; 99211